=== PATIENT | male | born 1980 | race Caucasian/White ===

== ENCOUNTER 2016-08-22 20:25 | Inpatient (IN) | payer OTHER ==
[~2016-08-22] VITALS: Ht 190.5 cm; Wt 95.5 kg
--- NOTE | 2016-08-22 23:07 | DIAGNOSTIC IMAGING REPORT ---
PROCEDURE: CT SINUS/FACIAL BONES W/CONT CLINICAL INDICATION: Left external otitis. TECHNIQUE: 125 ml of Isovue 300 injected intravenously and axial images were obtained through the face and temporal bones with sagittal and coronal re-formations. COMPARISON: None. FINDINGS: There is marked mucosal thickening with submucosal fluid of the left external auditory canal. No definite erosive changes are identified. There is moderate edema in the rivera auricular region with mild to moderate left upper cervical adenopathy. There is anterior subluxation of the left temporal mandibular joint. There is marked mucosal thickening and/or fluid in the left middle ear, mastoid antrum, and left mastoid air cells. No erosive changes are identified. Right temporal bone and mastoid structures appear normal. There is moderate mucosal thickening in the left maxillary sinus. The rest of the paranasal sinuses are clear. IMPRESSION: 1. There is marked mucosal thickening and submucosal fluid involving the left external auditory canal. Associated edema of the rivera auricular soft tissues. Findings are compatible with severe external otitis (consider malignant external otitis). 2. Moderate fluid in the left middle ear, mastoid air cells consistent with associated otitis and mastoiditis. 3. Associated moderate left upper cervical adenopathy. 4. Associated subluxation of the left temporal mandibular joint (due to underlying inflammation). 5. Moderate mucosal thickening in the left maxillary sinus (acute versus chronic). 6. Findings discussed with Dr. Rian Mayo. All CT scans at this facility use dose modulation, iterative reconstruction, and/or weight-based dosing when appropriate to reduce radiation dose to as low as reasonably achievable.
--- NOTE | 2016-08-22 23:22 | ED ORDER SUMMARY ---
..... Patient: SABAS RICKETTS OrderSheet [facility] VisitID: [id number] [address] [place] [address] 36y, M Registration Date/Time: 08/22/2016 ORDER SHEET Weight: 99.3 kg (stated) Allergies: Penicillins GENERAL ORDERS: - (culture left ear canal.) (20:47 08/22/2016 Landon SMITH) (Ack 20:49 IJurca ER Tech1) (23:04 RCollier R.N.) CBC w Diff Urgent (20:48 08/22/2016 Landon SMITH) (Ack 20:49 IJurca ER Tech1) (22:38 RCollier R.N.) CMP Urgent (20:48 08/22/2016 Landon SMITH) (Ack 20:49 IJurca ER Tech1) (22:38 RCollier R.N.) UA-Culture if indicated Urgent (20:48 08/22/2016 Landon SMITH) (Ack 20:49 IJurca ER Tech1) (23:04 RCollier R.N.) Urine Drug Screen Urgent (20:48 08/22/2016 Landon SMITH) (Ack 20:49 IJurca ER Tech1) (23:04 RCollier R.N.) Blood Culture (No) (N/A) Urgent (20:50 08/22/2016 Landon SMITH) (Ack 20:52 IJurca ER Tech1) (22:45 RCollier R.N.) Lactate, Serum Urgent (21:21 08/22/2016 José Beatty) (Ack 21:25 IJurca ER Tech1) (22:40 RCollier R.N.) PCT (Procalcitonin) Urgent (21:23 08/22/2016 José Beatty) (Ack 21:25 IJurca ER Tech1) (22:38 RCollier R.N.) CT Sinus/Facial Bones w Cont Urgent (21:42 08/22/2016 José Beatty) (Ack 21:45 IJurca ER Tech1) (Cancelled: Duplicate Order22:03 José Beatty) CT Head w/wo Cont (No) (N/A) Urgent (22:04 08/22/2016 José Beatty) (Cancelled: Duplicate Order22:09 José Beatty) CT Sinus/Facial Bones w Cont Urgent (22:09 08/22/2016 José Beatty) (Ack 22:11 IJurca ER Tech1) (22:40 RCollier R.N.) Consult - ENT (23:08 08/22/2016 José Beatty) (Ack 23:09 IJurca ER Tech1) (23:10 IJurca ER Tech1) MEDICATION ORDERS: Cortisporin Ear Drops 2 drops (once now, left ear with wick) (23:41 08/22/2016 José Beatty) (Ack 23:52 RCollier R.N.) (0:00 RCollier R.N.) IV FLUIDS: IV NS : initial bolus none -, then 125 mL/hr for 4h (NOW); Routine (20:47 08/22/2016 Landon SMITH) (Ack 21:02 RCollier R.N.) (Cancelled: Duplicate Order21:21 José Beatty) IV NS : initial bolus 1000 mL (1000 mL/hr), then none - for X1 (NOW) (21:21 08/22/2016 José Beatty) (Ack 21:51 RCollier R.N.) (21:54 RCollier R.N.) Morphine IV 4 mg (once now. may repeat once in 15 minutes for pain > 5/10) (21:59 08/22/2016 José Beatty) (Ack 22:03 RCollier R.N.) (22:09 RCollier R.N.) Ceftriaxone IV 1 gm/50mL (NOW) (23:13 08/22/2016 José eBatty) (Ack 23:21 RCollier R.N.) (23:35 RCollier R.N.) Vancomycin IV 1 gm/200mL (NOW) (23:13 08/22/2016 José Beatty) (Ack 23:21 RCollier R.N.) (0:38 RCollier R.N.) Decadron IV 20 mg (IV once) (23:14 08/22/2016 José Beatty) (Ack 23:21 Reina Carter) (23:34 Reina Carter) ORDER SHEET NOTES: [Electronically signed by Zari Allen R.N. (01:04 08/23/2016)] [Electronically signed by Rian Mayo Dr. (07:53 08/23/2016)] [Electronically locked/signed by Zari Allen R.N. (01:04 08/23/2016)]
--- NOTE | 2016-08-22 23:22 | ED ORDER SUMMARY ---
..... Patient: SABAS RICKETTS OrderSheet [facility] VisitID: [id number] [place] [address] 36y, M Registration Date/Time: 08/22/2016 ORDER SHEET Weight: 99.3 kg (stated) Allergies: Penicillins GENERAL ORDERS: - (culture left ear canal.) (20:47 08/22/2016 Landon SMITH) (Ack 20:49 IJurca ER Tech1) (23:04 RCollier R.N.) CBC w Diff Urgent (20:48 08/22/2016 Landon SMITH) (Ack 20:49 IJurca ER Tech1) (22:38 RCollier R.N.) CMP Urgent (20:48 08/22/2016 Landon SMITH) (Ack 20:49 IJurca ER Tech1) (22:38 RCollier R.N.) UA-Culture if indicated Urgent (20:48 08/22/2016 Landon SMITH) (Ack 20:49 IJurca ER Tech1) (23:04 RCollier R.N.) Urine Drug Screen Urgent (20:48 08/22/2016 Landon SMITH) (Ack 20:49 IJurca ER Tech1) (23:04 RCollier R.N.) Blood Culture (No) (N/A) Urgent (20:50 08/22/2016 Landon SMITH) (Ack 20:52 IJurca ER Tech1) (22:45 RCollier R.N.) Lactate, Serum Urgent (21:21 08/22/2016 José Beatty) (Ack 21:25 IJurca ER Tech1) (22:40 RCollier R.N.) PCT (Procalcitonin) Urgent (21:23 08/22/2016 José Beatty) (Ack 21:25 IJurca ER Tech1) (22:38 RCollier R.N.) CT Sinus/Facial Bones w Cont Urgent (21:42 08/22/2016 José Beatty) (Ack 21:45 IJurca ER Tech1) (Cancelled: Duplicate Order22:03 José Beatty) CT Head w/wo Cont (No) (N/A) Urgent (22:04 08/22/2016 José Beatty) (Cancelled: Duplicate Order22:09 José Beatty) CT Sinus/Facial Bones w Cont Urgent (22:09 08/22/2016 José Beatty) (Ack 22:11 IJurca ER Tech1) (22:40 RCollier R.N.) Consult - ENT (23:08 08/22/2016 José Beatty) (Ack 23:09 IJurca ER Tech1) (23:10 IJurca ER Tech1) MEDICATION ORDERS: Cortisporin Ear Drops 2 drops (once now, left ear with wick) (23:41 08/22/2016 José Beatty) (Ack 23:52 RCollier R.N.) (0:00 RCollier R.N.) IV FLUIDS: IV NS : initial bolus none -, then 125 mL/hr for 4h (NOW); Routine (20:47 08/22/2016 Landon SMITH) (Ack 21:02 RCollier R.N.) (Cancelled: Duplicate Order21:21 José Beatty) IV NS : initial bolus 1000 mL (1000 mL/hr), then none - for X1 (NOW) (21:21 08/22/2016 José Beatty) (Ack 21:51 RCollier R.N.) (21:54 RCollier R.N.) Morphine IV 4 mg (once now. may repeat once in 15 minutes for pain > 5/10) (21:59 08/22/2016 José Beatty) (Ack 22:03 RCollier R.N.) (22:09 RCollier R.N.) Ceftriaxone IV 1 gm/50mL (NOW) (23:13 08/22/2016 José Beatty) (Ack 23:21 RCollier R.N.) (23:35 RCollier R.N.) Vancomycin IV 1 gm/200mL (NOW) (23:13 08/22/2016 José Beatty) (Ack 23:21 RCollier R.N.) (0:38 RCollier R.N.) Decadron IV 20 mg (IV once) (23:14 08/22/2016 José Beatty) (Ack 23:21 Reina Carter) (23:34 Reina Carter) ORDER SHEET NOTES: [Electronically signed by Zari Allen R.N. (01:04 08/23/2016)] [Electronically signed by Rian Mayo Dr. (07:53 08/23/2016)] [Electronically locked/signed by Zari Allen R.N. (01:04 08/23/2016)]
--- NOTE | 2016-08-22 23:22 | ED NURSING NOTES ---
Clinical Report - Nurses [address] [place] [address] 08/22/2016 20:26 [id number] Triage time 20:41. Acuity: LEVEL 3. Chief Complaint: LEFT EAR PAIN. Alert. --20:45 Zari Allen R.N. 20:40 08/22/16. BP: 147/93. HR: 108. RR: 16. O2 saturation: 100%. Shen-Lemus pain scale: 8/10. --20:45 Zari Allen R.N. Weight: 99.3 kg stated. Height/Length: 75 inches Per Patient. BMI: 27.4. --20:44 Zari Allen R.N. Medications Levaquin Oral. --20:42 Zari Allen R.N. Ear Drops Otic. --20:43 Zari Allen R.N. Atifungal. --20:43 Zari Allen R.N. Allergies Penicillins. --20:43 Zari Allen R.N. History Arrived by private vehicle. Historian: patient. Accompanied by family. Primary physician (Andrez). Onset. (about 5 days ago (has been to PCP 2 times, put on antifungal and Levaquin) getting worse every day). 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 (last dose today at noon). SOCIAL HX: Heavy tobacco smoker (cigarette)- less than 1 pack per day. Occasional alcohol use. History of occasional drug use: marijuana. --20:45 Zari Allen R.N. ADDITIONAL SURGERIES: Ankle. --20:43 Zari Allen R.N. Interventions ID band on patient. To treatment room. --20:45 Zari Allen R.N. PHYSICAL ASSESSMENT Ambulatory to room. GENERAL / NEURO / PSYCH: Appears in pain. HEENT: Inflammation present in the left external auditory canal. RESPIRATORY: Respirations not labored. CVS: Capillary refill less than 2 seconds. SKIN: Skin is warm and dry. --20:46 Zari Allen R.N. NURSING PROGRESS NOTES Head of bed elevated. Two patient identifiers checked. Call light placed in reach. Side rails up x 1. Bed placed in lowest position. Brakes of bed on. --20:46 Zari Allen R.N. Patient ready for evaluation- chart flagged. --20:46 Zari Allen R.N. 21:29 08/22/2016 Site #1 started via IV in the right antecubital space with an 20g angiocath, with aseptic technique and good blood return; one attempt. Blood drawn: rainbow set. Labeled in the presence of the patient and sent to the lab. Saline lock flushed with 10 mL saline. --21:54 Zari Allen R.N. 21:54 08/22/2016 Started bag #1 1000 mL IV Fluids IV NS (Saline); at 1000 mL/hr via site #1 via IV pump. Allergies verified and confirmed 5 rights. IV patency established. IV site checked: no pain, redness, or swelling. IV flushed thoroughly pre- and post-medication administration. --21:54 Zari Allen R.N. 22:05 08/22/2016 Morphine IVP 4 mg given over 60 second(s) via site #1. Allergies verified, confirmed 5 rights and sedative warning given to the patient. IV patency established. IV site checked: no pain, redness, or swelling. IV flushed thoroughly pre- and post-medication administration. IVP given by RN. --22:09 Zari Allen R.N. Patient transported to radiology and CT by stretcher with tech. (22:18). --22:21 Zari Allen R.N. 22:38 08/22/2016 Morphine IVP 4 mg given over 60 second(s) via site #1. Sedative warning given to the patient. IV patency established. IV site checked: no pain, redness, or swelling. IV flushed thoroughly pre- and post-medication administration. IVP given by RN. --22:38 Zari Allen R.N. Patient returned from radiology and CT by stretcher with tech. (22:37). --22:39 Zari Allen R.N. 22:39 08/22/16. BP: 149/84. HR: 110. RR: 15. O2 saturation: 98%. Shen-Lemus pain scale: 08/11. --22:39 Zari Allen R.N. Patient ID band checked for patient name and birthdate: patient confirmed urine collected with return of yellow-colored clear urine; sample sent to lab. Specimen labeled in the presence of the patient. --22:53 Zari Allne R.N. Patient ID band checked for patient name and birthdate: patient confirmed. Wound swabbed for culture; collected by nurse. Specimen labeled in the presence of the patient (wound culture obtained from left ear canal, sent to lab). --22:55 Zari Allen R.N. 23:30 08/22/2016 Decadron IVP 20 mg given over 2 minute(s) via site #1. Allergies verified and confirmed 5 rights. IV patency established. IV site checked: no pain, redness, or swelling. IV flushed thoroughly pre- and post-medication administration. IVP given by RN. --23:34 Zari Allen R.N. 23:32 08/22/2016 Started 1 gm of Ceftriaxone IVPB in bag #1 50 mL; at 150 mg/hr over 20 minute(s) via site #1 via IV pump. Allergies verified and confirmed 5 rights. IV patency established. IV site checked: no pain, redness, or swelling. IV flushed thoroughly pre- and post-medication administration. --23:35 Zari Allen R.N. 23:35 08/22/16. BP: 137/90. HR: 102. RR: 16 (regular and unlabored). O2 saturation: 96% on room air. Shen-Lemus pain scale: 08/11. --23:36 Zari Allen R.N. 23:00 08/22/2016 IV Fluids IV NS Discontinued: bag #1 completed. Total amount infused: 1000 mL. IV patency established. IV site checked: no pain, redness, or swelling. IV flushed thoroughly. --00:39 Zari Allen R.N. 23:52 08/22/2016 Ceftriaxone IVPB Discontinued: bag #1 STOPPED. Total amount infused: 50 mL. IV patency established. IV site checked: no pain, redness, or swelling. IV flushed thoroughly. --00:01 Zari Allen R.N. 00:00 08/23/2016 Cortisporin (Ejdbogwf-Sirhmjydy-DY) Ear Drops Solution/Elixir 2 drop given. Given in the left ear. Allergies verified and confirmed 5 rights. --00:00 Zari Allen R.N. 00:01 08/23/2016 Started 1 gm of Vancomycin IVPB in bag #1 200 mL; at 200 mL/hr over 1 hour(s) via site #1 via IV pump. Allergies verified and confirmed 5 rights. IV patency established. IV site checked: no pain, redness, or swelling. IV flushed thoroughly pre- and post-medication administration. --00:38 Zari Allen R.N. DISPOSITION / DISCHARGE Report was given to a nurse via a phone call. All questions were answered. Report was acknowledged. (to LAURA Collier). --00:46 Zari Allen R.N. 00:57 08/23/16. BP: 136/88. HR: 94. RR: 15. O2 saturation: 95% on room air. Shen-Lemus pain scale: 2/10. --00:57 Zari Allen R.N. 00:58 08/23/2016 Site #[address] upon admission; patent; flushes easily. --00:58 Zari Allen R.N. 00:58 08/23/2016 Vancomycin IVPB Discontinued: bag #1 completed. Total amount infused: 200 mL. IV patency established. IV site checked: no pain, redness, or swelling. IV flushed thoroughly. --00:58 Zari Allen R.N. 01:03 08/23/16. Transported via wheelchair by transport team with IV. --01:03 Zari Allen R.N. Patient's personal items include, clothing and book; items were transported with the patient. Collection of belongings was witnessed by 1 nurse. --01:04 Zari Allen R.N. Locked/Released at 08/23/2016 1:04 by Zari Allen R.N.
--- NOTE | 2016-08-22 23:22 | ED CLINICAL REPORT ---
Clinical Report - Physicians/Mid Levels [facility] [address] [place] [address] 08/22/2016 20:26 [id number] Time Seen: 20:39 Apr 2016. Arrived- By private vehicle. Historian- patient. HISTORY OF PRESENT ILLNESS Chief Complaint: EARACHE. Modifying factors- (worsened by palpation. better with rest.). This started past 5 days and is still present and worsening. It was gradual in onset and has been constant but is not gone now. Location- left ear. The pain is described as severe. The patient has had ear pain and drainage. Similar symptoms previously: None. Recent medical care: The patient was seen recently by a health care provider. REVIEW OF SYSTEMS The patient has had a subjective fever and chills. No difficulty breathing, nausea or vomiting. All systems otherwise negative, except as recorded above. PAST HISTORY See nurses notes. Medications: Atifungal. Ear Drops Otic. Levaquin Oral. Allergies: Penicillins. SOCIAL HISTORY Smoker- current status unknown. Occasional alcohol use. History of occasional drug use: marijuana. No recent travel. Is a local resident. ADDITIONAL NOTES The nursing notes have been reviewed. PHYSICAL EXAM Vital Signs: 08/22/2016 20:40 BP: 147/93. HR: 108. RR: 16. O2 saturation: 100%. Shen-Lemus pain scale: 8/10. Oxygen saturation normal. Appearance: Alert. No acute distress. Eyes: Eyes normal inspection. ENT: (Left-sided external auditory canal with purulent drainage and swelling. Unable to visualize tympanic membrane. External auricle and surrounding area is erythematous and tender. No crepitus. Mild tenderness over the mastoid process. Mild proptosis of the left ear however this could be secondary to swelling. Mild erythema to theleft side of the face that extends approximately 4 cm anterior to the external auricle and 4 cm inferior to the external auricle. No masses. The right tympanic membrane and external auricle and auditory canal are normal. There is no proptosis of the right.). Throat: Pharynx normal. No pharyngeal erythema, mouth ulcerations, tonsillar exudate or peritonsillar mass. Neck: Normal inspection. Neck supple. CVS: Normal heart rate and rhythm. Heart sounds normal. Respiratory: No respiratory distress. Breath sounds normal. Abdomen: Soft and nontender. : Normal genitalia. Skin: Skin warm and dry. Normal skin color. No rash. Normal skin turgor. Extremities: Extremities exhibit normal ROM. No lower extremity edema. LABS, X-RAYS, AND EKG Laboratory Tests: UA-Culture if indicated: (NIDHI: 08/22/2016 22:50) ( [facility] Final results Test Result Flag Units (Reference) URINE COLOR YELLOW URINE APPEARANCE CLEAR URINE GLUCOSE NEGATIVE (NEGATIVE) URINE BILIRUBIN NEGATIVE (NEGATIVE) URINE KETONE NEGATIVE (NEGATIVE) URINE SPECIFIC GRAVITY 1.010 (1.010-1.030) URINE PH 7.5 (5.0-8.0) URINE PROTEIN NEGATIVE (NEGATIVE) URINE UROBILINOGEN 0.2 EU/dL (0.2-1.0) URINE NITRITE NEGATIVE (NEGATIVE) URINE BLOOD TRACE-INTACT (NEGATIVE) URINE LEUK ESTERASE NEGATIVE (NEGATIVE) URINE RBC 1-3 rbc/hpf (0-1) URINE WBC NONE SEEN wbc/hpf (0-1) URINE EPITHELIAL CELLS NONE SEEN EPI/hpf (0-5) URINE BACTERIA TRACE (<1+) (NONE SEEN) URINE COMMENT CULT NOT INDICATED URINE CULTURES ARE SET-UP BASED ON THE FOLLOWING CRITERIA:POSITIVE NITRITEPOSITIVE LEUKOCYTE ESTERASEGREATER THAN 10 WHITE BLOOD CELLSMODERATE (2+) OR GREATER BACTERIA CBC w Diff: (NIDHI: 08/22/2016 20:47) ( [facility]08) Final results Test Result Flag Units (Reference) WHITE BLOOD COUNT 11.4 K/uL (4.5-11.5) RED BLOOD COUNT 4.72 M/uL (4.50-5.90) HEMOGLOBIN 14.8 gm/dL (13.5-17.5) HEMATOCRIT 43.4 % (41.0-53.0) MEAN CELL VOLUME 92 fL (80-100) MEAN CORPUSCULAR HGB 31 pg (26-34) MEAN CORPUSCULAR HGB CONC 34 g/dL (31-37) RED CELL DISTRIBUTION WIDTH 13.4 % (11.6-14.8) PLATELET COUNT 253 K/uL (150-400) NEUTROPHIL % 77.4 H % (50-75) LYMPH % 14.4 L % (25-40) MONO % 6.3 % (3-14) EOSINOPHIL % 1.8 % (0-4) BASOPHIL % 0.1 % (0-2) [id number]: (NIDHI: 08/22/2016 21:15) ( MsgRcvd 08/22/2016 22:12) Final results Test Result Flag Units (Reference) PROCALCITONIN < 0.05 ng/mL (0-0.5) PCT Concentration: Interpretation : Risk/option for action PCT <=0.5 ng/mL : Systemic : Low risk forinfection(sepsis): progression to severeis not likely. : systemic infection.Local bacterial : CAUTION-PCT levelsinfection is : below 0.5 ng/mL do notpossible. : exclude an infection,because localizedinfections (withoutsystemic signs) may beassociated with suchlow levels. If PCT ismeasured very earlyafter a bacterialchallenge (usually <6hours), these valuesmay still be low. Inthis case PCT shouldbe re-assessed 6-24hours later. PCT >0.5 and : Systemic infection: Moderate risk for<= 2 ng/mL : (sepsis) is : progression to severepossible, but : systemic infection.other conditions : The patient should beare known to : closely monitoredelevate PCT. : both clinically andby re-assessing PCTwithin 6-24 hours. PCT > 2 ng/mL : Systemic infection: High risk for(sepsis) is likely: progression to severeunless other : systemic infection.causes are known. : PCT >= 10 ng/mL : Important systemic: High likelihood ofinflammatory : severe sepsis orresponse, almost : septic shock.exclusively due to:severe bacterial :sepsis or septic :shock. : Lactate, Serum: (NIDHI: 08/22/2016 21:30) ( [facility] 08/22/2016 22:17) Final results Test Result Flag Units (Reference) LACTIC ACID 0.8 mmol/L (0.4-2.0) Urine Drug Screen: (NIDHI: 08/22/2016 22:50) ( [facility] 23[facility]11) Final results Test Result Flag Units (Reference) AMPHETAMINE/METHAMPHETAMINE NEGATIVE (NEGATIVE) BARBITURATE NEGATIVE (NEGATIVE) BENZODIAZEPINE NEGATIVE (NEGATIVE) CANNABINOID POSITIVE H (NEGATIVE) COCAINE NEGATIVE (NEGATIVE) ECSTASY NEGATIVE (NEGATIVE) METHADONE NEGATIVE (NEGATIVE) OPIATE POSITIVE H (NEGATIVE) The urine drug screen is a qualitative screening test fordrug overdose and abuse. All screen results should beconsidered as presumptive.Drugs screened for are as follows:BenzodiazepinesCocaineAmphetamines/MetamphetaminesTHC (Tetrahydrocannabinol)OpiatesBarbituratesEcstasyMethadonePositive results are unconfirmed. For confirmation, notifythe lab for the specimen to be sent to the reference lab.All confirmations must be performed by a differentmethodology.The ingestion of natural herbal and plant productscontaining Ephedra/Ephedra metabolites can produce in urineone or more substances capable of cross reacting withamphetamine/methamphetamine immunoassays. These testsprovide a preliminary result only. A more specificalternative chemical method must be used to obtain aconfirmed analytical result. CMP: (NIDHI: 08/22/2016 20:47) ( MsgRcvd 08/22/2016 21:15) Final results Test Result Flag Units (Reference) GLUCOSE 109 mg/dL (70-110) BUN 11 mg/dL (7-18) CREATININE 1.4 H mg/dL (0.6-1.3) Estimated GFR >60 mL/min Estimated GFR- >60 mL/min Note: Persistent reduction over 3 months in eGFR<60 mL/min/1.73 m2 defines CKD. Patients with eGFR values>=60 mL/min/1.73 m2 may also have CKD if evidence ofpersistent proteinuria. Additional information may be foundat www.kidney.org. SODIUM 142 mmol/L (136-145) POTASSIUM 4.4 mmol/L (3.5-5.1) CHLORIDE 102 mmol/L (98-107) CARBON DIOXIDE 29 mmol/L (21-32) CALCIUM 9.8 mg/dL (8.5-10.1) TOTAL PROTEIN 8.4 H g/dL (6.4-8.2) ALBUMIN 3.6 g/dL (3.3-5.0) BILIRUBIN, TOTAL 0.5 mg/dL (0.0-1.0) ALKALINE PHOSPHATASE 73 U/L (46-116) AST (SGOT) 14 L U/L (15-37) ALT (SGPT) 25 U/L (12-78) . PROGRESS AND PROCEDURES Course of Care: he patient is a pleasant 36-year-old male presenting for a vaginal left-sided ear pain. On examination, she has significant abnormality to the left ear. At this time differential diagnosis includes mastoiditis, malignant otitis externa, or facial cellulitis. Patient will be evaluated with laboratory studies including CT scan of the left face. Discussed cased with radiology in regards to appropriate imaging studies for evaluation mastoiditis. Recommended initially CT head with and without contrast however after further discussion with radiology, stated the initial order placed for CT scan of themax face would be sufficient. Patient is currently nontoxic. She is afebrile here in the emergency department. Did not fill patient is septic at this time however with patient's differential would be concerning and would need to likely be admitted to the hospital. Patient is a 32 been on several days of outpatient antibiotics including oral and eardrops. Patient's workup was markable for the findings above. Consult placed to ear nose and throat. Recommended patient be placed on antibiotics over did not specify which antibiotics would be appropriate. according to the patient's case, ceftriaxone would be an appropriate antibiotic. Would be also concern for staph infection. Vancomycin has been added to the patient's antibiotic regimen. Discussed case with you nose and throat and also recommended patient be placed on Decadron 20 mg onceIV and continue at 10 mg per day while being admitted. No further recommendations made. Discussed case with the hospitalist who will accept the patient. No further recommendations made. No other abnormalities noted. The patient's departure from the emergency department is noted be resting in bed and in no acute distress. Pain has significantly improved. Discussed with the patient his workup here in the emergency department including diagnosis and plan of care. All questions have been answered. Feel the patient is stable for floor placement however patient is a poor outpatient candidate. Do not fill patient is admitted to the intensive care unit based on his vital signs here in the emergency department and overall nontoxic appearance. Again, patient will need to be admitted to the hospital however for IV antibiotics because of failed outpatient therapy. Critical care performed (40 minutes). Time is exclusive of separately billable procedures. Time includes: direct patient care, patient reassessment, coordination of patient care, interpretation of data (laboratory data), review of patient's medical records, medical consultation, family consultation regarding treatment decisions and documentation of patient care. Consult obtained from ENT. Dr. Onofre. Disposition: Observation in Acute Care. CLINICAL IMPRESSION Acute left-sided mastoiditis acute left-sided facial cellulitis. (Electronically signed by Rian Mayo Dr. 08/23/2016 7:53)
--- NOTE | 2016-08-22 23:22 | ED NURSING NOTES ---
Clinical Report - Nurs[facility] [address] [place] [address] 08/22/2016 20:26 [id number] Triage time 20:41. Acuity: LEVEL 3. Chief Complaint: LEFT EAR PAIN. Alert. --20:45 Zari Allen R.N. 20:40 08/22/16. BP: 147/93. HR: 108. RR: 16. O2 saturation: 100%. Shen-Lemus pain scale: 8/10. --20:45 Zari Allen R.N. Weight: 99.3 kg stated. Height/Length: 75 inches Per Patient. BMI: 27.4. --20:44 Zari Allen R.N. Medications Levaquin Oral. --20:42 Zari Allen R.N. Ear Drops Otic. --20:43 Zari Allen R.N. Atifungal. --20:43 Zari Allen R.N. Allergies Penicillins. --20:43 Zari Allen R.N. History Arrived by private vehicle. Historian: patient. Accompanied by family. Primary physician (Andrez). Onset. (about 5 days ago (has been to PCP 2 times, put on antifungal and Levaquin) getting worse every day). 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 (last dose today at noon). SOCIAL HX: Heavy tobacco smoker (cigarette)- less than 1 pack per day. Occasional alcohol use. History of occasional drug use: marijuana. --20:45 Zari Allen R.N. ADDITIONAL SURGERIES: Ankle. --20:43 Zari Allen R.N. Interventions ID band on patient. To treatment room. --20:45 Zari Allen R.N. PHYSICAL ASSESSMENT Ambulatory to room. GENERAL / NEURO / PSYCH: Appears in pain. HEENT: Inflammation present in the left external auditory canal. RESPIRATORY: Respirations not labored. CVS: Capillary refill less than 2 seconds. SKIN: Skin is warm and dry. --20:46 Zari Allen R.N. NURSING PROGRESS NOTES Head of bed elevated. Two patient identifiers checked. Call light placed in reach. Side rails up x 1. Bed placed in lowest position. Brakes of bed on. --20:46 Zari Allen R.N. Patient ready for evaluation- chart flagged. --20:46 Zari Allen R.N. 21:29 08/22/2016 Site #1 started via IV in the right antecubital space with an 20g angiocath, with aseptic technique and good blood return; one attempt. Blood drawn: rainbow set. Labeled in the presence of the patient and sent to the lab. Saline lock flushed with 10 mL saline. --21:54 Zari Allen R.N. 21:54 08/22/2016 Started bag #1 1000 mL IV Fluids IV NS (Saline); at 1000 mL/hr via site #1 via IV pump. Allergies verified and confirmed 5 rights. IV patency established. IV site checked: no pain, redness, or swelling. IV flushed thoroughly pre- and post-medication administration. --21:54 Zari Allen R.N. 22:05 08/22/2016 Morphine IVP 4 mg given over 60 second(s) via site #1. Allergies verified, confirmed 5 rights and sedative warning given to the patient. IV patency established. IV site checked: no pain, redness, or swelling. IV flushed thoroughly pre- and post-medication administration. IVP given by RN. --22:09 Zari Allen R.N. Patient transported to radiology and CT by stretcher with tech. (22:18). --22:21 Zari Allen R.N. 22:38 08/22/2016 Morphine IVP 4 mg given over 60 second(s) via site #1. Sedative warning given to the patient. IV patency established. IV site checked: no pain, redness, or swelling. IV flushed thoroughly pre- and post-medication administration. IVP given by RN. --22:38 Zari Allen R.N. Patient returned from radiology and CT by stretcher with tech. (22:37). --22:39 Zari Allen R.N. 22:39 08/22/16. BP: 149/84. HR: 110. RR: 15. O2 saturation: 98%. Shen-Lemus pain scale: 08/11. --22:39 Zari Allen R.N. Patient ID band checked for patient name and birthdate: patient confirmed urine collected with return of yellow-colored clear urine; sample sent to lab. Specimen labeled in the presence of the patient. --22:53 Zari lAlen R.N. Patient ID band checked for patient name and birthdate: patient confirmed. Wound swabbed for culture; collected by nurse. Specimen labeled in the presence of the patient (wound culture obtained from left ear canal, sent to lab). --22:55 Zari Allen R.N. 23:30 08/22/2016 Decadron IVP 20 mg given over 2 minute(s) via site #1. Allergies verified and confirmed 5 rights. IV patency established. IV site checked: no pain, redness, or swelling. IV flushed thoroughly pre- and post-medication administration. IVP given by RN. --23:34 Zari Allen R.N. 23:32 08/22/2016 Started 1 gm of Ceftriaxone IVPB in bag #1 50 mL; at 150 mg/hr over 20 minute(s) via site #1 via IV pump. Allergies verified and confirmed 5 rights. IV patency established. IV site checked: no pain, redness, or swelling. IV flushed thoroughly pre- and post-medication administration. --23:35 Zari Allen R.N. 23:35 08/22/16. BP: 137/90. HR: 102. RR: 16 (regular and unlabored). O2 saturation: 96% on room air. Shen-Lemus pain scale: 08/11. --23:36 Zari Allen R.N. 23:00 08/22/2016 IV Fluids IV NS Discontinued: bag #1 completed. Total amount infused: 1000 mL. IV patency established. IV site checked: no pain, redness, or swelling. IV flushed thoroughly. --00:39 Zari Allen R.N. 23:52 08/22/2016 Ceftriaxone IVPB Discontinued: bag #1 STOPPED. Total amount infused: 50 mL. IV patency established. IV site checked: no pain, redness, or swelling. IV flushed thoroughly. --00:01 Zari Allen R.N. 00:00 08/23/2016 Cortisporin ([id number]) Ear Drops Solution/Elixir 2 drop given. Given in the left ear. Allergies verified and confirmed 5 rights. --00:00 Zari Allen R.N. 00:01 08/23/2016 Started 1 gm of Vancomycin IVPB in bag #1 200 mL; at 200 mL/hr over 1 hour(s) via site #1 via IV pump. Allergies verified and confirmed 5 rights. IV patency established. IV site checked: no pain, redness, or swelling. IV flushed thoroughly pre- and post-medication administration. --00:38 Zari Allen R.N. DISPOSITION / DISCHARGE Report was given to a nurse via a phone call. All questions were answered. Report was acknowledged. (to LAURA Collier). --00:46 Zari Allen R.N. 00:57 08/23/16. BP: 136/88. HR: 94. RR: 15. O2 saturation: 95% on room air. Shen-Lemus pain scale: 2/10. --00:57 Zari Allen R.N. 00:58 08/23/2016 Site #[address] upon admission; patent; flushes easily. --00:58 Zari Allen R.N. 00:58 08/23/2016 Vancomycin IVPB Discontinued: bag #1 completed. Total amount infused: 200 mL. IV patency established. IV site checked: no pain, redness, or swelling. IV flushed thoroughly. --00:58 Zari Allen R.N. 01:03 08/23/16. Transported via wheelchair by transport team with IV. --01:03 Zari Allen R.N. Patient's personal items include, clothing and book; items were transported with the patient. Collection of belongings was witnessed by 1 nurse. --01:04 Zari Allen R.N. Locked/Released at 08/23/2016 1:04 by Zari Allen R.N.
[2016-08-23 01:18] VITALS: BP 136/79
--- NOTE | 2016-08-23 01:37 | Progress Note ---
Subjective General Chief complaint Left ear pain, facial pain Infection left ear Admission History and Physical Examination Patient Name: Krishna Parrish Admission Date: August 22, 2016 admission type:acute care observation Primary Care Provider: Antoine Maguire MD Attending Physician: Remington Kaur M.D. Admitting Physician: Remington Kaur M.D. Code Status: Full Code Room: 212 SUBJECTIVE Historian: Patient Reliability: Fair Chief Complaint: Abdominal pain Cirrhosis Recurrent fever Recurrent headaches History of Present Illness: The patient is a 36-year-old white male a hx of chroniic back pain , anxiety who presented to [facility] emergency department on the day of admission secondary to complaints of left facial and ear pain. The [facility] ER evaluation was consistent with left otitis externa, in the setting of mastoiditis and associated left soft tissue swelling and infection. Secondary to the above, the patient was admitted by Remington Kaur M.D. for further evaluation and treatment. The history of present illness began more than 5 days prior to the day of admission . Patient first noted pain in the mouth and associated abscess in the right lower gumline. Patient states that he took a needle to the lower gum and popliteal abscess. Had pus that was drained from the abscess. Patient the next day began to experience left ear pain. Patient reported that the ear pain became more progressive and he didn't begin any swelling around his left ear. Patient was seen by his primary care provider; there he was given external ear drops. The next day he was was seen again and there he was given oral antibiotics. Patient was given levofloxacin 500 mg to be taken daily until improved. Patient, however , had progressive worsening of his left facial and ear pain. Patient began having difficulty with chewing and swallowing and notable pain in the left side. Patient had difficulty sleeping. Despite antibiotics. Patient had persistent fevers. Patient states the fever was not measured on each occasion. Patient was seen today in the emergency department due to left ear and facial pain. CT scan of the sinuses was performed and this was remarkable for developing mastoiditis, swelling with near occlusion of the left external meatus of the year, associated swelling around the TMJ joint. Patient was consulted by ENT, Dr. Onofre. Dr. Onofre recommended patient be observed overnight and started on IV antibiotics. Further consultation by ENT was recommended if there was progressive worsening. Patient was admitted to observation on IV antibiotics and otherwise supportive care. PAST MEDICAL HISTORY Illnesses: Scheduled, osteoarthritis and lumbar spine. Anxiety, depression Allergies: 1. Penicillin allergy Medications: 1. Alprazolam 1 mg by mouth daily 2. Tramadol 100 mg extended release by mouth 3 times a day Surgery: No notable surgeries Injuries: 1. Lower back injury Hospitalizations: 1. No known hospitalization FAMILY HISTORY Parents: 1. Father good health 2. Mother good health SOCIAL HISTORY 1. Marital Status: 4. 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 Occupational health exposures: Unknown HABITS 1. Tobacco: 15 year smoking history one pack per day 2. Drugs: Cannabis 3. Alcohol: None HEALTH SUPERVISION Item/Test 1. Immunizations through primary care. Growing up up-to-date IMMUNIZATIONS: 1. Pneumococcal: none previous 2. Influenza: Unknown 3. Tetanus: Unknown REVIEW OF SYSTEMS Remarkable for those things stated in the history of present illness and past medical history. Seventeen point review of system completed with the following notable findings Skin: normal Eyes: normal Mouth: none Respiratory: SOB at times Cardiovascular: none Musculoskeletal: Joint stiffness, Psychological: Depression, anxiety Physical Exam Vital Signs / I&Os Vital Signs Date Time Temp Pulse Resp B/P Pulse O2 O2 Flow FiO2 Ox Delivery Rate 08/23 0118 99.3 90 24 136/79 97 Room Air General Appearance Oriented X3, Cooperative, No acute distress HEENT Atraumatic, PERRLA, EOMI, swelling of the left facial region notable over the left mandibular region inferior to the auricle. Also tenderness and swelling over the left mastoid with lymphadenopathy noted in the suboccipital and anterior neck. Patient is restricted in tight closure of the mouth and prolonged and wide opening of the mouth. TMJ joint on the left appears to be restricted. Nasal joshua on the left is full and swollen. Unable to visualize the TM on the left TM visualized on the right. Erythematous changes noted in the oropharynx. Normal tonsillar and adenoid dimensions noted. No petechia. Moist mucous membranes. Less than adequate general care notable inferior molar fracture. Relatively healthy gumlines Lungs Clear to auscultation, Normal air movement Neck Supple, No JVD Cardiovascular Regular rate and rhythm, Normal S1 and S2 Abdomen Normal bowel sounds, Soft, No tenderness, No guarding Extremities No cyanosis, No clubbing, No edema Neurological Normal speech, Normal tone, Cranial nerves intact Psych/Mental Status Mood normal LAB Results Laboratory Tests 08/22 2130 2250 Chemistry Plasma Sodium (136 - 145 mmol/L) 142 Plasma Potassium (3.5 - 5.1 mmol/L) 4.4 Plasma Chloride (98 - 107 mmol/L) 102 CO2 (Enzymatic) (21 - 32 mmol/L) 29 BUN (7 - 18 mg/dL) 11 Creatinine (0.6 - 1.3 mg/dL) 1.4 Est GFR ( Amer) (mL/min) >60 Est GFR (Non-Af Amer) (mL/min) >60 Glucose (70 - 110 mg/dL) 109 Lactic Acid (0.4 - 2.0 mmol/L) 0.8 Plasma Calcium (8.5 - 10.1 mg/dL) 9.8 Total Bilirubin (0.0 - 1.0 mg/dL) 0.5 AST (15 - 37 U/L) 14 ALT (12 - 78 U/L) 25 Alkaline Phosphatase (46 - 116 U/L) 73 Total Protein (6.4 - 8.2 g/dL) 8.4 Albumin (3.3 - 5.0 g/dL) 3.6 Procalcitonin (0 - 0.5 ng/mL) < 0.05 Hematology WBC (4.5 - 11.5 K/uL) 11.4 RBC (4.50 - 5.90 M/uL) 4.72 Hgb (13.5 - 17.5 gm/dL) 14.8 Hct (41.0 - 53.0 %) 43.4 MCV (80 - 100 fL) 92 MCH (26 - 34 pg) 31 RDW (11.6 - 14.8 %) 13.4 Neut % (Auto) (50 - 75 %) 77.4 Lymph % (Auto) (25 - 40 %) 14.4 [place] % (Auto) (3 - 14 %) 6.3 Eos % (Auto) (0 - 4 %) 1.8 Baso % (Auto) (0 - 2 %) 0.1 Plt Count, EDTA (150 - 400 K/uL) 253 PUBS MCHC (31 - 37 g/dL) 34 Toxicology Urine Opiates Screen (NEGATIVE) POSITIVE Urine Methadone Screen (NEGATIVE) NEGATIVE Ur Barbiturates Screen (NEGATIVE) NEGATIVE U Amphetamin/Meth Scrn (NEGATIVE) NEGATIVE MDMA (Ecstasy) Screen (NEGATIVE) NEGATIVE U Benzodiazepines Scrn (NEGATIVE) NEGATIVE Urine Cocaine Screen (NEGATIVE) NEGATIVE U Cannabinoids Screen (NEGATIVE) POSITIVE Urines Urine Color YELLOW Urine Appearance CLEAR Urine pH (5.0 - 8.0) 7.5 Ur Specific [place] (1.010 - 1.030) 1.010 Urine Protein (NEGATIVE) NEGATIVE Urine Ketones (NEGATIVE) NEGATIVE Urine Blood (NEGATIVE) TRACE-INTACT Urine Nitrite (NEGATIVE) NEGATIVE Urine Bilirubin (NEGATIVE) NEGATIVE Urine Urobilinogen (0.2 - 1.0 EU/dL) 0.2 Ur Leukocyte Esterase (NEGATIVE) NEGATIVE Urine RBC (0 - 1 rbc/hpf) 1-3 Urine WBC (0 - 1 wbc/hpf) NONE SEEN Ur Epithelial Cells (0 - 5 EPI/hpf) NONE SEEN Urine Bacteria (NONE SEEN) TRACE (<1+) Urine Glucose (NEGATIVE) NEGATIVE Urine Comment CULT NOT INDICATED Microbiology Date/Time Procedure - Status Source Growth 08/22 2249 Ear Culture - RES EAR 08/22 2249 Gram Stain - RES EAR 08/22 2099 Blood Culture - RECD BLOOD 08/22 2099 Blood Culture - RECD BLOOD Imaging DATE OF EXAM(S): 08/22/16 PROCEDURE: CT SINUS/FACIAL BONES W/CONT IMPRESSION: 1. There is marked mucosal thickening and submucosal fluid involving the left external auditory canal. Associated edema of the rivera auricular soft tissues. Findings are compatible with severe external otitis (consider malignant external otitis). 2. Moderate fluid in the left middle ear, mastoid air cells consistent with associated otitis and mastoiditis. 3. Associated moderate left upper cervical adenopathy. 4. Associated subluxation of the left temporal mandibular joint (due to underlying inflammation). 5. Moderate mucosal thickening in the left maxillary sinus (acute versus chronic). Assessment and Plan Problem List 1. Mastoiditis of left side Plan Progression of infection despite appropriate outpatient care in the left facial area adjacent to the left auricle . Progressive infection of the infection to the left Mastoid and left TM Left mastoid. Progression towards mastoidiritis is concerning giving the close proximity's of the neural structures. Patient will be started on vancomycin and ceftriaxone IV delivery. Patient has been consulted by ENT through the emergency department. We'll plan to follow-up with ENT over the next 24 hours . If there is progression of the infection. Otherwise, patient will be seen as an outpatient. Patient was started on IV back and IV ceftriaxone in the ED. This will be continued over the next 48-72 hours and then antibiotics will cover for outpatient therapy. Plan to pain control. Patient adequately. Patient has adequate outpatient care upon discharge. 2. Otitis externa Plan As for the above. Will treat infection. Patient will need to be followed as an outpatient. Adequate fluid hydration. We'll plan to follow cultures and appropriate antibiotic as sensitivities are published. 3. Fever Plan Fever as a function of infection. We'll monitor and follow up on the necessities toward fever reduction. 4. Anxiety Plan Patient has a long list of reasons for maintaining a state of anxiety. Suggestion the patient be followed up with behavioral medicine to become attuned to his coping skills. Cognitive behavioral therapies may be a benefit in the future for this patient. In the meantime will cover appropriately with anxiolytics. Patient will be given Xanax 0.5-1 mg every 8 hours as needed. Current status: Fair to poor Anticipated discharge date: Anticipated discharge in 1-2 days Anticipated discharge placement: Home Patient care time: Time spent in chart review, patient interview, physical exam, CPOE, and care documentation: 70 minutes Visit to patient today: 1 Complexity of care: Moderate E&M Codes Admission: Obsv-Comp/Moderate/[id number]
[2016-08-23] MEDS ORDERED: TRAMADOL HCL50 MG PO (02:23)
[2016-08-23] MEDS ORDERED: ALPRAZOLAM0.25 MG PO (02:25)
[2016-08-23] MEDS ORDERED: LEVAQUIN250 MG PO (02:26)
[2016-08-23 06:41] VITALS: BP 124/73
--- NOTE | 2016-08-23 07:54 | ED MED RECONCILIATION SUMMARY ---
Patient: SABAS RICKETTS Medication Reconciliation Report [facility] VisitID: [id number] [address] [place] [address] 36y, M Registration Date/Time: 08/22/2016 Weight: 99.3 kg Height/Length: 75 in. BMI: 27.4 ALLERGIES: Penicillins The patient's Home Medications are listed below: THE FOLLOWING MEDICATIONS NEED TO BE RECONCILED: Atifungal Ear Drops Otic Levaquin Oral The source(s) of the original Home Medication information: Not obtained. The following Medications were given to the patient in the Emergency Department: IV NS IV Fluids bolus 0, then 1000 mL/hr, administered: 08/22/2016 9:54:00 PM Morphine [IVP] IVP 4 mg, administered: 08/22/2016 10:05:00 PM Morphine [IVP] IVP 4 mg, administered: 08/22/2016 10:38:00 PM Decadron [IVP] IVP 20 mg, administered: 08/22/2016 11:30:00 PM Ceftriaxone [IVPB] IVPB bolus 0, then 1 gm 150 mg/hr, administered: 08/22/2016 11:32:00 PM Cortisporin [Ear Drops] Ear Drops 2 drop, administered: 08/23/2016 12:00:00 AM Vancomycin [IVPB] IVPB bolus 0, then 1 gm 200 mL/hr, administered: 08/23/2016 12:01:00 AM The following Medications were prescribed to the patient: None.
--- NOTE | 2016-08-23 07:54 | ED MED RECONCILIATION SUMMARY ---
Patient: SABAS RICKETTS Medication Reconciliation Report [facility] VisitID: [id number] [address] [place] [address] 36y, M Registration Date/Time: 08/22/2016 Weight: 99.3 kg Height/Length: 75 in. BMI: 27.4 ALLERGIES: Penicillins The patient's Home Medications are listed below: THE FOLLOWING MEDICATIONS NEED TO BE RECONCILED: Atifungal Ear Drops Otic Levaquin Oral The source(s) of the original Home Medication information: Not obtained. The following Medications were given to the patient in the Emergency Department: IV NS IV Fluids bolus 0, then 1000 mL/hr, administered: 08/22/2016 9:54:00 PM Morphine [IVP] IVP 4 mg, administered: 08/22/2016 10:05:00 PM Morphine [IVP] IVP 4 mg, administered: 08/22/2016 10:38:00 PM Decadron [IVP] IVP 20 mg, administered: 08/22/2016 11:30:00 PM Ceftriaxone [IVPB] IVPB bolus 0, then 1 gm 150 mg/hr, administered: 08/22/2016 11:32:00 PM Cortisporin [Ear Drops] Ear Drops 2 drop, administered: 08/23/2016 12:00:00 AM Vancomycin [IVPB] IVPB bolus 0, then 1 gm 200 mL/hr, administered: 08/23/2016 12:01:00 AM The following Medications were prescribed to the patient: None.
--- NOTE | 2016-08-23 07:54 | ED DISCHARGE INSTRUCTIONS ---
Patient: SABAS RICKETTS General Instructions [facility] VisitID: [id number] [address] [place] [address] 36y, M Registration Date/Time: 08/22/2016 Acute left-sided mastoiditis acute left-sided facial cellulitis. (Electronically signed by Rian Mayo Dr. 08/23/2016 7:53)
--- NOTE | 2016-08-23 07:54 | ED DISCHARGE INSTRUCTIONS ---
Patient: SABAS RICKETTS General Instructions [facility] VisitID: [id number] [address] [place] [address] 36y, M Registration Date/Time: 08/22/2016 Acute left-sided mastoiditis acute left-sided facial cellulitis. (Electronically signed by Rian Mayo Dr. 08/23/2016 7:53)
--- NOTE | 2016-08-23 07:54 | ED MAR SUMMARY ---
..... Medication Administration Record [facility] [address] [place] [address] Patient: SABAS RICKETTS Visit ID: [id number] 36y, M Weight: 99.3 kg Height/Length: 75 in BMI: 27.4 ALLERGIES: Penicillins Start 21:54 08/22/2016 Zari Allen R.N., Stop 23:00 08/22/2016 Zari Allen R.N. Medication Administered: IV NS (SALINE), Dose: IV Fluids, Rate: 1000 mL/hr, Dispensed: 1000 mL bag, Site: #1 right AC. Medication Ordered: IV NS : initial bolus 1000 mL (1000 mL/hr), then none - for X1 (NOW). Given 22:05 08/22/2016 Zari Allen R.N. Medication Administered: MORPHINE [IVP], Dose: 4 mg IVP over 60 second(s), Site: #1 right AC. Medication Ordered: Morphine IV 4 mg (once now. may repeat once in 15 minutes for pain > 5/10). Given 22:38 08/22/2016 Zari Allen R.N. Medication Administered: MORPHINE [IVP], Dose: 4 mg IVP over 60 second(s), Site: #1 right AC. Medication Ordered: Morphine IV 4 mg (once now. may repeat once in 15 minutes for pain > 5/10). Given 23:30 08/22/2016 Zari Allen R.N. Medication Administered: DECADRON [IVP], Dose: 20 mg IVP over 2 minute(s), Site: #1 right AC. Medication Ordered: Decadron IV 20 mg (IV once). Start 23:32 08/22/2016 Zari Allen R.N., Stop 23:52 08/22/2016 Zari Allen R.N. Medication Administered: CEFTRIAXONE [IVPB], Dose: 1 gm IVPB over 20 minute(s), Rate: 150 mg/hr, Dispensed: 50 mL bag, Site: #1 right AC. Medication Ordered: Ceftriaxone IV 1 gm/50mL (NOW). Given 00:00 08/23/2016 Zari Allen R.N. Medication Administered: CORTISPORIN [EAR DROPS] ([id number]), Dose: 2 drop Solution/Elixir Ear Drops. Medication Ordered: Cortisporin Ear Drops 2 drops (once now, left ear with wick). Start 00:01 08/23/2016 Zari Allen R.N., Stop 00:58 08/23/2016 Zari Allen R.N. Medication Administered: VANCOMYCIN [IVPB], Dose: 1 gm IVPB over 1 hour(s), Rate: 200 mL/hr, Dispensed: 200 mL bag, Site: #1 right AC. Medication Ordered: Vancomycin IV 1 gm/200mL (NOW).
--- NOTE | 2016-08-23 07:54 | ED MAR SUMMARY ---
..... Medication Administration Record [facility] [address] [place] [address] Patient: SABAS RICKETTS Visit ID: [id number] 36y, M Weight: 99.3 kg Height/Length: 75 in BMI: 27.4 ALLERGIES: Penicillins Start 21:54 08/22/2016 Zari Allen R.N., Stop 23:00 08/22/2016 Zari Allen R.N. Medication Administered: IV NS (SALINE), Dose: IV Fluids, Rate: 1000 mL/hr, Dispensed: 1000 mL bag, Site: #1 right AC. Medication Ordered: IV NS : initial bolus 1000 mL (1000 mL/hr), then none - for X1 (NOW). Given 22:05 08/22/2016 Zari Allen R.N. Medication Administered: MORPHINE [IVP], Dose: 4 mg IVP over 60 second(s), Site: #1 right AC. Medication Ordered: Morphine IV 4 mg (once now. may repeat once in 15 minutes for pain > 5/10). Given 22:38 08/22/2016 Zari Allen R.N. Medication Administered: MORPHINE [IVP], Dose: 4 mg IVP over 60 second(s), Site: #1 right AC. Medication Ordered: Morphine IV 4 mg (once now. may repeat once in 15 minutes for pain > 5/10). Given 23:30 08/22/2016 Zari Allen R.N. Medication Administered: DECADRON [IVP], Dose: 20 mg IVP over 2 minute(s), Site: #1 right AC. Medication Ordered: Decadron IV 20 mg (IV once). Start 23:32 08/22/2016 Zari Allen R.N., Stop 23:52 08/22/2016 Zari Allen R.N. Medication Administered: CEFTRIAXONE [IVPB], Dose: 1 gm IVPB over 20 minute(s), Rate: 150 mg/hr, Dispensed: 50 mL bag, Site: #1 right AC. Medication Ordered: Ceftriaxone IV 1 gm/50mL (NOW). Given 00:00 08/23/2016 Zari Allen R.N. Medication Administered: CORTISPORIN [EAR DROPS] ([id number]), Dose: 2 drop Solution/Elixir Ear Drops. Medication Ordered: Cortisporin Ear Drops 2 drops (once now, left ear with wick). Start 00:01 08/23/2016 Zari Allen R.N., Stop 00:58 08/23/2016 Zari Allen R.N. Medication Administered: VANCOMYCIN [IVPB], Dose: 1 gm IVPB over 1 hour(s), Rate: 200 mL/hr, Dispensed: 200 mL bag, Site: #1 right AC. Medication Ordered: Vancomycin IV 1 gm/200mL (NOW).
--- NOTE | 2016-08-23 08:39 | Progress Note ---
Subjective General Note Date: August 23, 2016 Admission Date: August 23, 2016 Hospital Day: 1 PCP: Antoine Maguire M.D. Status: Observation Advanced Directive: FULL CODE Room: 212 Brief History: The patient is a 36-year-old white male a hx of chroniic back pain , anxiety who presented to [facility] emergency department on the day of admission secondary to complaints of left facial and ear pain. The [facility] ER evaluation was consistent with left otitis externa, in the setting of mastoiditis and associated left soft tissue swelling and infection. Secondary to the above, the patient was admitted by Remington Kaur M.D. for further evaluation and treatment. For other history present illness, past medical history, family history, social history, review of systems, and admission physical examination please see the patient's history and physical examination and ER visit note in the patient's medical record. Subjective: The patient states he is doing much better today. Less pain and swelling of the left ear. Alcohol about 30-40% improved Patient requests: No specific Medications and Allergies Medications Current Medications Sig/Ilsa Start time Last Medication Dose Route Stop Time Status Admin Ceftriaxone Sodium/ 50 ML 2300 08/23 2300 AC Dextrose IV Pantoprazole Sodium 40 MG DAILY@0600 08/23 0600 AC 08/23 Sesquihydrate PO 0656 Nicotine 21 MG DAILY 08/23 0300 08/23 TOP 0258 Vancomycin HCl/ 200 ML Q8H 08/23 0200 AC 08/23 Dextrose IV 0252 Alprazolam See Dose Q8H PRN 08/23 0115 AC Insts (1) PO Morphine Sulfate 7.5 MG Q4H PRN 08/23 0115 AC 08/23 PO 0658 Tramadol HCl See Dose Q6H PRN 08/23 0115 AC Insts (2) PO Acetaminophen 650 MG Q6H PRN 08/23 0100 AC 08/23 PO 0258 Lactated Ringer's 1,000 ML ASDIRECTED 08/23 0100 AC IV Ondansetron HCl 4 MG Q6H PRN 08/23 0100 AC IV Zolpidem Tartrate 5 MG QHS PRN 08/23 0100 AC 08/23 PO 0258 Sodium Chloride 1,000 ML ASDIRECTED 08/23 0015 AC 08/23 IV 08/23 1015 0138 Dose Instructions: (1)Alprazolam: 0.5 - 1 MG (2)Tramadol HCl: 50 - 100 MG Allergies Coded Allergies: Penicillin V (From Penicil VK) (08/23/16) Allergies Penicillins. --20:43 Zari Allen R.N. Physical Exam Vital Signs / I&Os Vital Signs Date Time Temp Pulse Resp B/P Pulse O2 O2 Flow FiO2 Ox Delivery Rate 08/23 0641 97.7 88 18 124/73 97 Room Air 0.0 08/23 0118 99.3 90 24 136/79 97 Room Air General Appearance Alert, Oriented X3, Cooperative, No acute distress HEENT Left ear shows mild inflammation and edema. Tenderness to palpation on tragus. Lungs Clear to auscultation, Normal air movement Cardiovascular Regular rate and rhythm, Normal S1 and S2 Abdomen Normal bowel sounds, Soft, No tenderness LAB Results Laboratory Tests 08/22 08/22 08/22 08/22 2250 2130 2115 2047 Chemistry Plasma Sodium (136 - 145 mmol/L) 142 Plasma Potassium (3.5 - 5.1 mmol/L) 4.4 Plasma Chloride (98 - 107 mmol/L) 102 CO2 (Enzymatic) (21 - 32 mmol/L) 29 BUN (7 - 18 mg/dL) 11 Creatinine (0.6 - 1.3 mg/dL) 1.4 Est GFR ( Amer) (mL/min) >60 Est GFR (Non-Af Amer) (mL/min) >60 Glucose (70 - 110 mg/dL) 109 Lactic Acid (0.4 - 2.0 mmol/L) 0.8 Plasma Calcium (8.5 - 10.1 mg/dL) 9.8 Total Bilirubin (0.0 - 1.0 mg/dL) 0.5 AST (15 - 37 U/L) 14 ALT (12 - 78 U/L) 25 Alkaline Phosphatase (46 - 116 U/L) 73 Total Protein (6.4 - 8.2 g/dL) 8.4 Albumin (3.3 - 5.0 g/dL) 3.6 Procalcitonin (0 - 0.5 ng/mL) < 0.05 Hematology WBC (4.5 - 11.5 K/uL) 11.4 RBC (4.50 - 5.90 M/uL) 4.72 Hgb (13.5 - 17.5 gm/dL) 14.8 Hct (41.0 - 53.0 %) 43.4 MCV (80 - 100 fL) 92 MCH (26 - 34 pg) 31 RDW (11.6 - 14.8 %) 13.4 Neut % (Auto) (50 - 75 %) 77.4 Lymph % (Auto) (25 - 40 %) 14.4 [place] % (Auto) (3 - 14 %) 6.3 Eos % (Auto) (0 - 4 %) 1.8 Baso % (Auto) (0 - 2 %) 0.1 Plt Count, EDTA (150 - 400 K/uL) 253 PUBS MCHC (31 - 37 g/dL) 34 Toxicology Urine Opiates Screen (NEGATIVE) POSITIVE Urine Methadone Screen (NEGATIVE) NEGATIVE Ur Barbiturates Screen (NEGATIVE) NEGATIVE U Amphetamin/Meth Scrn (NEGATIVE) NEGATIVE MDMA (Ecstasy) Screen (NEGATIVE) NEGATIVE U Benzodiazepines Scrn (NEGATIVE) NEGATIVE Urine Cocaine Screen (NEGATIVE) NEGATIVE U Cannabinoids Screen (NEGATIVE) POSITIVE Urines Urine Color YELLOW Urine Appearance CLEAR Urine pH (5.0 - 8.0) 7.5 Ur Specific [place] (1.010 - 1.030) 1.010 Urine Protein (NEGATIVE) NEGATIVE Urine Ketones (NEGATIVE) NEGATIVE Urine Blood (NEGATIVE) TRACE-INTACT Urine Nitrite (NEGATIVE) NEGATIVE Urine Bilirubin (NEGATIVE) NEGATIVE Urine Urobilinogen (0.2 - 1.0 EU/dL) 0.2 Ur Leukocyte Esterase (NEGATIVE) NEGATIVE Urine RBC (0 - 1 rbc/hpf) 1-3 Urine WBC (0 - 1 wbc/hpf) NONE SEEN Ur Epithelial Cells (0 - 5 EPI/hpf) NONE SEEN Urine Bacteria (NONE SEEN) TRACE (<1+) Urine Glucose (NEGATIVE) NEGATIVE Urine Comment CULT NOT INDICATED Microbiology Date/Time Procedure - Status Source Growth 08/22 2249 Ear Culture - RES EAR 08/22 2249 Gram Stain - RES EAR 08/22 2100 Blood Culture - RECD BLOOD 08/22 2100 Blood Culture - RECD BLOOD Assessment and Plan Problem List 1. Mastoiditis of left side Plan -Patient with findings of mastoiditis, otitis externa -Continue present antimicrobial therapy -Monitor 2. Otitis externa Plan -See above -Symptoms improved -Decreasing edema, tenderness of the external ear canal. -Continue present antimicrobial therapy/corticosteroid otic drops Current status: Fair, improved Anticipated discharge date: Anticipated discharge in 24 hours Anticipated discharge placement: Home Patient care time: Time spent in chart review, patient interview, physical exam, CPOE, and care documentation: 25 minutes Visit to patient today: 1 Complexity of care: Moderate E&M Codes Rounding: Inpt-Moderate/[id number]
[2016-08-23 10:45] VITALS: BP 138/73
[2016-08-23 13:47] VITALS: BP 136/66
[2016-08-23 19:06] VITALS: BP 119/76
[2016-08-23 22:24] VITALS: BP 122/52
[2016-08-24 02:26] VITALS: BP 125/57
[2016-08-24 07:59] VITALS: BP 110/55
[2016-08-24 11:19] VITALS: BP 113/56
[2016-08-24 14:39] VITALS: BP 112/60
--- NOTE | 2016-08-24 15:29 | Progress Note ---
Subjective General Pt seen and examined. Patient has no complaints at the moment except being anxious to leave. Patient still has ghulam purulence in his external canal. Will recommend that the patient stay in patient to have IV antibiotics given. Constitutional Denies: Fever, Chills, Sweats, Weakness, Malaise, Other. Eyes Denies: Pain, Vision Change, Conjunctival Inflammation, Eyelid Inflammation, Redness, Other. ENT Ear Pain, Ear Discharge. Denies: Nose Pain, Nasal Discharge, Nasal Congestion, Mouth Pain, Mouth Swelling, Throat Pain, Throat Swelling, Other. Respiratory Denies: Cough, Dry, SOB w/exertion, Wheezing, Hemoptysis, Pleuritic Pain, Sputum , Other. Cardiovascular Denies: Chest Pain, Palpitations, Orthopnea, PND, Edema, Light-headedness, Other. Gastrointestinal Denies: Nausea, Vomiting, Abdominal Pain, Diarrhea, Constipation, Melena, Hematochezia, Other. Genitourinary Denies: Dysuria, Frequency, Incontinence, Hematuria, Retention, Other. Musculoskeletal Denies: Neck Pain, Shoulder Pain, Arm Pain, Back Pain, Hand Pain, Leg Pain, Foot Pain, Other. Skin Denies: Rash, Lesions, Jaundice, Bruising, Other. Neurological Denies: Weakness, Numbness, Incoordination, Change in speech, Confusion, Seizures, Other. Physical Exam Vital Signs / I&Os Vital Signs Date Time Temp Pulse Resp B/P Pulse O2 O2 Flow FiO2 Ox Delivery Rate 08/24 1439 97.7 83 16 112/60 96 Room Air 08/24 1119 97.7 86 18 113/56 98 Room Air 0.0 08/24 0759 97.5 86 18 110/55 95 Room Air 0.0 08/24 0226 98.1 94 15 125/57 95 Room Air 08/23 2224 98.8 96 17 122/52 92 Room Air 0.0 08/23 2202 0.0 08/23 1906 97.9 97 20 119/76 97 Room Air I&O 08/23 0800 08/23 1600 08/24 0000 Intake Total 945 332 9867 Output Total 800 650 Balance 36 -170 2134 General Appearance Alert, Oriented X3, No acute distress HEENT Atraumatic, PERRLA, - ghulam purulent discharge from left ear - will need to be examined daily - decreased tragus tenderness Lungs Clear to auscultation, Normal air movement Cardiovascular Regular rate and rhythm, No murmurs, gallops, rubs Abdomen Soft, No tenderness, No rebound, No masses Extremities No clubbing, No edema, Normal pulses, No tenderness, Jose's sign negative Skin No Rashes, No Breakdown, No Significant Lesions Neurological Normal speech, Sensation intact, Cranial nerves intact, No lateralizing signs Psych/Mental Status Mood normal LAB Results Laboratory Tests 08/24 08/24 0601 0950 Chemistry Plasma Sodium (136 - 145 mmol/L) 139 Plasma Potassium (3.5 - 5.1 mmol/L) 4.0 Plasma Chloride (98 - 107 mmol/L) 104 CO2 (Enzymatic) (21 - 32 mmol/L) 28 BUN (7 - 18 mg/dL) 15 Creatinine (0.6 - 1.3 mg/dL) 1.1 Est GFR ( Amer) (mL/min) >60 Est GFR (Non-Af Amer) (mL/min) >60 Glucose (70 - 110 mg/dL) 119 Plasma Calcium (8.5 - 10.1 mg/dL) 8.8 Hematology WBC (4.5 - 11.5 K/uL) 13.2 RBC (4.50 - 5.90 M/uL) 4.39 Hgb (13.5 - 17.5 gm/dL) 13.6 Hct (41.0 - 53.0 %) 40.6 MCV (80 - 100 fL) 93 MCH (26 - 34 pg) 31 RDW (11.6 - 14.8 %) 13.5 Neut % (Auto) (50 - 75 %) 75.1 Lymph % (Auto) (25 - 40 %) 16.9 [place] % (Auto) (3 - 14 %) 6.0 Eos % (Auto) (0 - 4 %) 1.7 Baso % (Auto) (0 - 2 %) 0.3 Plt Count, EDTA (150 - 400 K/uL) 251 PUBS MCHC (31 - 37 g/dL) 34 Toxicology Vancomycin Trough (10.0 - 20.0 ug/mL) 9.5 Assessment and Plan Problem List 1. Mastoiditis of left side Plan - pain is improving - will continue with anti-microbial therapy - no external lymph nodes appreciated 2. Otitis externa Plan - purulence on exam - tympanic membrane poorly visualized - ghulam purulence noted - microbial culture is positive for pseudomonas - will switch ceftriaxone to cefepime
[2016-08-24 18:09] VITALS: BP 117/77
[2016-08-24 22:24] VITALS: BP 128/59
[2016-08-25 03:12] VITALS: BP 114/62
--- NOTE | 2016-08-25 06:18 | Progress Note ---
Subjective General Note Date: August 25, 2016 Admission Date: August 23, 2016 Hospital Day: 1 PCP: Antoine Maguire M.D. Status: Observation Advanced Directive: FULL CODE Room: 212 Brief History: The patient is a 36-year-old white male a hx of chroniic back pain , anxiety who presented to [facility] emergency department on the day of admission secondary to complaints of left facial and ear pain. The [facility] ER evaluation was consistent with left otitis externa, in the setting of mastoiditis and associated left soft tissue swelling and infection. Secondary to the above, the patient was admitted by Remington Kaur M.D. for further evaluation and treatment. Subjective: The patient was seen and examined at bed side. Patient reports that he's had improvement overall. Patient continues to have difficulty hearing from the left ear. Patient reports of 5-7 out of 10 pain. Patient states that the pain control is been helpful. Patient is able to eat full meals at this time. She states that he is feeling better and was like to go home later in the day if possible. Patient requests: No specific Physical Exam Vital Signs / I&Os Vital Signs Date Time Temp Pulse Resp B/P Pulse O2 O2 Flow FiO2 Ox Delivery Rate 08/25 0312 98.6 70 14 114/62 98 Room Air 0.0 08/24 2224 98.2 82 15 128/59 95 Room Air 0.0 08/24 2143 Room Air 08/24 1809 98.8 86 16 117/77 98 Room Air 08/24 1439 97.7 83 16 112/60 96 Room Air 08/24 1119 97.7 86 18 113/56 98 Room Air 0.0 08/24 0759 97.5 86 18 110/55 95 Room Air 0.0 I&O 08/24 0800 08/24 1600 08/25 0000 Intake Total 1834 1948 300 Output Total 600 1050 650 Balance 1234 898 -350 General Appearance Oriented X3, Cooperative HEENT EOMI, swelling over the left facial region around the auricle on the left. There is less notable displacement of the cor goal on face. Tenderness to palpation of the mandible and the mastoid. evaluation of the external canal. Able to visualize the TM. Fluid residual noted at the periphery of the canal along with close proximity to the TM. Patient reports her pain while manipulating the helix. Neck No masses Cardiovascular Normal S1 and S2 Abdomen Soft, No tenderness Skin No Significant Lesions Neurological Normal speech, Normal tone Psych/Mental Status Mood normal LAB Results Laboratory Tests 08/25 0515 Chemistry Plasma Sodium (136 - 145 mmol/L) 140 Plasma Potassium (3.5 - 5.1 mmol/L) 3.9 Plasma Chloride (98 - 107 mmol/L) 104 CO2 (Enzymatic) (21 - 32 mmol/L) 28 BUN (7 - 18 mg/dL) 18 Creatinine (0.6 - 1.3 mg/dL) 1.1 Est GFR ( Amer) (mL/min) >60 Est GFR (Non-Af Amer) (mL/min) >60 Glucose (70 - 110 mg/dL) 98 Plasma Calcium (8.5 - 10.1 mg/dL) 8.4 Total Bilirubin (0.0 - 1.0 mg/dL) 0.2 AST (15 - 37 U/L) 12 ALT (12 - 78 U/L) 18 Alkaline Phosphatase (46 - 116 U/L) 55 Total Protein (6.4 - 8.2 g/dL) 6.4 Albumin (3.3 - 5.0 g/dL) 2.7 Hematology WBC (4.5 - 11.5 K/uL) 8.1 RBC (4.50 - 5.90 M/uL) 4.40 Hgb (13.5 - 17.5 gm/dL) 13.6 Hct (41.0 - 53.0 %) 40.6 MCV (80 - 100 fL) 92 MCH (26 - 34 pg) 31 RDW (11.6 - 14.8 %) 13.5 Neut % (Auto) (50 - 75 %) 45.6 Lymph % (Auto) (25 - 40 %) 39.8 [place] % (Auto) (3 - 14 %) 7.8 Eos % (Auto) (0 - 4 %) 6.2 Baso % (Auto) (0 - 2 %) 0.6 Plt Count, EDTA (150 - 400 K/uL) 268 PUBS MCHC (31 - 37 g/dL) 34 Assessment and Plan Problem List 1. Mastoiditis of left side Plan Improvement in symptoms. Subjective hearing loss on the left. Therapy has been beneficial in reducing infection. Recommendations for patient be seen by otolaryngology either inpatient or as an outpatient. Patient will be discharged on oral antibiotics to PCP for the next 2-3 days with recommendations to see specialist within 3-4 days. 2. Otitis externa Plan Significant improvement in the infection overall. External canal is now patent with undulation's. Follow-up with otolaryngology Current status: Fair, improved Anticipated discharge date: Anticipated discharge today or one-day Anticipated discharge placement: Home Patient care time: Time spent in chart review, patient interview, physical exam, CPOE, and care documentation: 25 minutes Visit to patient today: 1 Complexity of care: Moderate E&M Codes Rounding: Inpt-Low/85319
[2016-08-25 06:56] VITALS: BP 109/67
[2016-08-25 10:52] VITALS: BP 114/63
[2016-08-25 14:35] VITALS: BP 125/69
[2016-08-25 18:19] VITALS: BP 121/71
[2016-08-25 23:02] VITALS: BP 122/71
[2016-08-26 03:00] VITALS: BP 119/55
[2016-08-26 06:53] VITALS: BP 103/67
--- NOTE | 2016-08-26 08:12 | Progress Note ---
Subjective General Note Date: August 26, 2016 Admission Date: August 23, 2016 Hospital Day: 4 PCP: Antoine Maguire M.D. Status:In patient AC Advanced Directive: FULL CODE Room: 212 Brief History: The patient is a 36-year-old white male a hx of chroniic back pain , anxiety who presented to [facility] emergency department on the day of admission secondary to complaints of left facial and ear pain. The [facility] ER evaluation was consistent with left otitis externa, in the setting of mastoiditis and associated left soft tissue swelling and infection. Secondary to the above, the patient was admitted by Remington Kaur M.D. for further evaluation and treatment. Subjective: Patient was seen at bedside. Patient is doing better by the day. Patient's pain levels of 5 out of 10. No drainage from the ear. Patient requests: No specific Physical Exam Vital Signs / I&Os Vital Signs Date Time Temp Pulse Resp B/P Pulse O2 O2 Flow FiO2 Ox Delivery Rate 08/26 0653 97.7 68 22 103/67 97 Room Air 0.0 08/26 0300 98.1 76 18 119/55 98 Room Air 08/25 2302 98.1 76 18 122/71 98 Room Air 08/25 2000 Room Air 08/25 1819 97.5 80 18 121/71 98 Room Air 08/25 1435 97.9 77 18 125/69 96 Room Air 08/25 1052 98.2 74 18 114/63 97 Room Air 0.0 I&O 08/25 0800 08/25 1600 08/26 0000 Intake Total 2423 240 2146 Output Total 2690 234 0185 Balance 1373 -310 821 General Appearance Cooperative HEENT EOMI, . State of less swollen in the external canal. More visible addition of the TM, no drainage noted Lungs Normal air movement Cardiovascular Normal S1 and S2 Extremities Normal exam LAB Results Laboratory Tests 08/26 0924 Toxicology Vancomycin Trough (10.0 - 20.0 ug/mL) 17.0 Assessment and Plan Problem List 1. Mastoiditis of left side Plan Discharge planning. Continue with the same cefepime, no changes. Plan to discharge on a fluoroquinolone. 2. Otitis externa Plan Canal appears to be more patent. 3. Fever Plan No fevers 4. Anxiety Plan Resolving Current status: Fair, improved Anticipated discharge date: 08/27/2016 Anticipated discharge placement: Home Patient care time: Time spent in chart review, patient interview, physical exam, CPOE, and care documentation: 25 minutes Visit to patient today: 1 Complexity of care: Moderate E&M Codes Rounding: Inpt-Low/47204
--- NOTE | 2016-08-26 08:12 | Progress Note ---
Subjective General Note Date: August 26, 2016 Admission Date: August 23, 2016 Hospital Day: 4 PCP: Antoine Maguire M.D. Status:In patient AC Advanced Directive: FULL CODE Room: 212 Brief History: The patient is a 36-year-old white male a hx of chroniic back pain , anxiety who presented to [facility] emergency department on the day of admission secondary to complaints of left facial and ear pain. The [facility] ER evaluation was consistent with left otitis externa, in the setting of mastoiditis and associated left soft tissue swelling and infection. Secondary to the above, the patient was admitted by Remington Kaur M.D. for further evaluation and treatment. Subjective: Patient was seen at bedside. Patient is doing better by the day. Patient's pain levels of 5 out of 10. No drainage from the ear. Patient requests: No specific Physical Exam Vital Signs / I&Os Vital Signs Date Time Temp Pulse Resp B/P Pulse O2 O2 Flow FiO2 Ox Delivery Rate 08/26 0653 97.7 68 22 103/67 97 Room Air 0.0 08/26 0300 98.1 76 18 119/55 98 Room Air 08/25 2302 98.1 76 18 122/71 98 Room Air 08/25 2000 Room Air 08/25 1819 97.5 80 18 121/71 98 Room Air 08/25 1435 97.9 77 18 125/69 96 Room Air 08/25 1052 98.2 74 18 114/63 97 Room Air 0.0 I&O 08/25 0800 08/25 1600 08/26 0000 Intake Total 2423 240 2146 Output Total 5327 286 0330 Balance 1373 -310 821 General Appearance Cooperative HEENT EOMI, . State of less swollen in the external canal. More visible addition of the TM, no drainage noted Lungs Normal air movement Cardiovascular Normal S1 and S2 Extremities Normal exam LAB Results Laboratory Tests 08/26 0924 Toxicology Vancomycin Trough (10.0 - 20.0 ug/mL) 17.0 Assessment and Plan Problem List 1. Mastoiditis of left side Plan Discharge planning. Continue with the same cefepime, no changes. Plan to discharge on a fluoroquinolone. 2. Otitis externa Plan Canal appears to be more patent. 3. Fever Plan No fevers 4. Anxiety Plan Resolving Current status: Fair, improved Anticipated discharge date: 08/27/2016 Anticipated discharge placement: Home Patient care time: Time spent in chart review, patient interview, physical exam, CPOE, and care documentation: 25 minutes Visit to patient today: 1 Complexity of care: Moderate E&M Codes Rounding: Inpt-Low/97443
[2016-08-26 10:56] VITALS: BP 124/66
[2016-08-26 14:14] VITALS: BP 114/75
[2016-08-26 18:10] VITALS: BP 119/77
[2016-08-26 22:54] VITALS: BP 137/67
[2016-08-27 02:58] VITALS: BP 121/73
[2016-08-27 07:20] VITALS: BP 123/68
--- NOTE | 2016-08-27 07:48 | Progress Note ---
Subjective General Note Date: August 27, 2016 Admission Date: August 23, 2016 Hospital Day: 5 PCP: Antoine Maguire M.D. Status:In patient AC inpatient Advanced Directive: FULL CODE Room: 212 Brief History: The patient is a 36-year-old white male a hx of chroniic back pain , anxiety who presented to [facility] emergency department on the day of admission secondary to complaints of left facial and ear pain. The [facility] ER evaluation was consistent with left otitis externa, in the setting of mastoiditis and associated left soft tissue swelling and infection. Secondary to the above, the patient was admitted by Remington Kaur M.D. for further evaluation and treatment. Subjective: Patient was seen at bedside. Patient is doing better. Patient still has limitations in hearing from the left ear Patient requests: No specific Physical Exam Vital Signs / I&Os Vital Signs Date Time Temp Pulse Resp B/P Pulse O2 O2 Flow FiO2 Ox Delivery Rate 08/27 0720 97.9 77 20 123/68 98 Room Air 0.0 08/27 0258 98.4 67 18 121/73 99 Room Air 08/26 2254 98.1 77 18 137/67 99 Room Air 08/26 1810 99.0 81 18 119/77 97 Room Air 08/26 1414 98.4 79 16 114/75 95 Room Air 0.0 08/26 1056 97.5 87 16 124/66 96 Room Air 0.0 I&O 08/26 0800 08/26 1600 08/27 0000 Intake Total 2578 1081 1085 Output Total 1300 1000 450 Balance 1278 81 635 General Appearance Oriented X3 HEENT EOMI, swelling left ext mamie. Lungs Clear to auscultation Neck Supple, No JVD Cardiovascular Normal S1 and S2 LAB Results Laboratory Tests 08/27 0540 Hematology WBC (4.5 - 11.5 K/uL) 9.6 RBC (4.50 - 5.90 M/uL) 4.92 Hgb (13.5 - 17.5 gm/dL) 15.2 Hct (41.0 - 53.0 %) 45.0 MCV (80 - 100 fL) 92 MCH (26 - 34 pg) 31 RDW (11.6 - 14.8 %) 13.1 Neut % (Auto) (50 - 75 %) 47.7 Lymph % (Auto) (25 - 40 %) 32.7 [place] % (Auto) (3 - 14 %) 10.7 Eos % (Auto) (0 - 4 %) 8.3 Baso % (Auto) (0 - 2 %) 0.6 Plt Count, EDTA (150 - 400 K/uL) 281 PUBS MCHC (31 - 37 g/dL) 34 Assessment and Plan Problem List 1. Mastoiditis of left side Plan Discharge home on oral antibiotics Follow-up with ENT and primary care provider 2. Otitis externa Plan Discharged home on oral antibiotics 3. Fever Plan Fever secondary to infection. Resolving 4. Anxiety Plan Follow-up with oral antibiotics. Follow up with ENT Current status: Fair, improving Anticipated discharge date: 08/28/2016 Anticipated discharge placement: Home Patient care time: Time spent in chart review, patient interview, physical exam, CPOE, and care documentation: 25 minutes Visit to patient today: 1 Complexity of care: Moderate Prophylaxis GI DVT E&M Codes Rounding: Inpt-Moderate/[id number]
--- NOTE | 2016-08-27 07:51 | Discharge Summary ---
Discharge Summary Report Admit Date 08/24/16 Discharge Date 08/27/16 Admission Diagnosis 1. Mastoiditis, left side 2. Otitis externa. 3. Fever. 4. Anxiety Discharge Diagnosis 1. Mastoiditis, left side 2. Otitis externa. 3. Fever. 4. Anxiety Brief History The patient is a 36-year-old white male a hx of chroniic back pain , anxiety who presented to [facility] emergency department on the day of admission secondary to complaints of left facial and ear pain. The [facility] ER evaluation was consistent with left otitis externa, in the setting of mastoiditis and associated left soft tissue swelling and infection. Secondary to the above, the patient was admitted by Remington Kaur M.D. for further evaluation and treatment. The history of present illness began more than 5 days prior to the day of admission . Patient first noted pain in the mouth and associated abscess in the right lower gumline. Patient states that he took a needle to the lower gum and popliteal abscess. Had pus that was drained from the abscess. Patient the next day began to experience left ear pain. Patient reported that the ear pain became more progressive and he didn't begin any swelling around his left ear. Patient was seen by his primary care provider; there he was given external ear drops. The next day he was was seen again and there he was given oral antibiotics. Patient was given levofloxacin 500 mg to be taken daily until improved. Patient, however , had progressive worsening of his left facial and ear pain. Patient began having difficulty with chewing and swallowing and notable pain in the left side. Patient had difficulty sleeping. Despite antibiotics. Patient had persistent fevers. Patient states the fever was not measured on each occasion. Patient was seen today in the emergency department due to left ear and facial pain. CT scan of the sinuses was performed and this was remarkable for developing mastoiditis, swelling with near occlusion of the left external meatus of the year, associated swelling around the TMJ joint. Patient was consulted by ENT, Dr. Onofre. Dr. Onofre recommended patient be observed overnight and started on IV antibiotics. Further consultation by ENT was recommended if there was progressive worsening. Patient was admitted to observation on IV antibiotics and otherwise supportive care. Hospital Course Patient was admitted with a mastoiditis. Patient had profound swelling in the face along with occlusion of the left external canal. TM wasn't visualized during the initial evaluation. Patient was having significant pain and was not able to have a good night's rest. Cultures taken in the ED return showing Pseudomonas with sensitivities to cefepime. Patient was placed on cefepime 1000 mg every 12 hours. Patient was on cefepime for a total of 3 hospital days. Patient had significant ongoing improvement in his condition with decreased pain and decreased swelling. Patient however had less than adequate hearing in left ear. ENT was consulted in the hospital. ENT however elected not to come into the hospital for inpatient coverage. However they elected to have him come into their clinic for immediate follow-up. Follow up is necessary to replace the packing and to continue with the eardrops. Patient is discharged on Levaquin 750 mg. General Appearance Oriented X3 HEENT slight swelling in the left facial region around the external auditory canal minimal tenderness around the left mastoid. Patient is able to fully close and open his mouth. Lungs Normal air movement Cardiovascular Normal S1, Normal S2 Abdomen Soft, No tenderness Skin No Significant Lesions Psych/Mental Status Mood NL Lab/Imaging Laboratory Tests 08/27 0540 Hematology WBC (4.5 - 11.5 K/uL) 9.6 RBC (4.50 - 5.90 M/uL) 4.92 Hgb (13.5 - 17.5 gm/dL) 15.2 Hct (41.0 - 53.0 %) 45.0 MCV (80 - 100 fL) 92 MCH (26 - 34 pg) 31 RDW (11.6 - 14.8 %) 13.1 Neut % (Auto) (50 - 75 %) 47.7 Lymph % (Auto) (25 - 40 %) 32.7 [place] % (Auto) (3 - 14 %) 10.7 Eos % (Auto) (0 - 4 %) 8.3 Baso % (Auto) (0 - 2 %) 0.6 Plt Count, EDTA (150 - 400 K/uL) 281 PUBS MCHC (31 - 37 g/dL) 34 Discharge Instructions/Meds However they elected to have him come into their clinic for immediate follow- up. Follow up is necessary to replace the packing and to continue with the eardrops. Patient is discharged on Levaquin 750 mg. This will continue for the next 7 days. Patient is expected to return back to the emergency department or urgent care clinic with worsening symptoms. Patient needs follow-up with his primary care provider within 3-4 days.
[2016-08-27 10:17] VITALS: BP 133/79
[2016-08-27] MEDS ORDERED: LEVOFLOXACIN750 MG PO (11:04)
--- NOTE | 2016-08-27 11:07 | Provider's Discharge Care Plan ---
Problem, Goal, Plan Problem List 1. Mastoiditis of left side Goals: Improve disease control, Learn about illness Instructions: Follow up as directed, Take meds as directed 2. Otitis externa Goals: Improve disease control, Improve nutrition status Instructions: Follow up as directed, Take meds as directed 3. Anxiety Goals: Improve disease control, Learn about illness, Prevent disease progress Instructions: Follow up as directed, Take meds as directed
== END 2016-08-27 13:30 | disposition home or self-care (01) | DRG 113 ==
LOC: ED SRH 20:25 → TRANS SRH 08-23 00:16 → ACUTE2 SRH 08-23 01:02
PROVIDERS: ADMIT Student in an Organized Health Care Education/Training Program
DX: H70.002 Acute mastoiditis without complications, left ear (principal); B96.5 Pseudomonas (aeruginosa) (mallei) (pseudomallei) as the cause of diseases classified elsewhere; H60.502 Unspecified acute noninfective otitis externa, left ear; L03.211 Cellulitis of face; R50.81 Fever presenting with conditions classified elsewhere; F41.9 Anxiety disorder, unspecified
CPT/HCPCS: 29230; 83456; 90004; 90047; 90065; 90074; 90100; 90128; 90148; 90309; 91583; 92031; 92760; 92761; 92762; 92763; 92764; 92765; 92766; 92767; 93004; 95059